=== PATIENT | male | born 2000 | race Two or more races ===

== ENCOUNTER 2025-09-05 15:49 | Emergency (ER) | payer MEDICAID ==
[~2025-09-05] VITALS: Ht 160 cm; Wt 57.2 kg
[2025-09-05] MEDS ORDERED: LIDOCAINE 1% INJ 50 ML MDV IJ ONE (16:44)
[2025-09-05] MEDS: LIDOCAINE 1% INJ 50 ML MDV IJ ONE (16:48)
[2025-09-05] MEDS ORDERED: CEPH-570 PO (17:52)
[2025-09-05 18:09] VITALS: BP 105/80; TEMP 98.7; O2SAT 98
== END 2025-09-05 18:10 | disposition home or self-care (01) ==
LOC: ER 16:15
DX: C62.90 Malignant neoplasm of unspecified testis, unspecified whether descended or undescended (principal); Z85.47 Personal history of malignant neoplasm of testis
CPT/HCPCS: 99282; J3490